=== PATIENT | female | born 1975 | race Caucasian/White ===

== ENCOUNTER 2023-12-24 09:47 | Emergency (ER) | payer BC, SELFPAY ==
[2023-12-24 09:58] VITALS: BP 94/55; PULSE 67; RESP 16; TEMP 37.2; O2SAT 98; BMI 26.4
--- NOTE | 2023-12-24 10:02 | ED_ITS ---
HPI - Skin/Abscess/Foreign Bdy General Time Seen by Provider: 10:02 Date Seen: 12/24/23 Chief complaint: Skin/Abscess/Foreign Body Stated complaint: hives Time Seen by Provider: 12/24/23 09:54 Source: patient and RN notes reviewed Mode of arrival: ambulatory Limitations: no limitations History of Present Illness HPI narrative: This 48-year-old female is ambulatory into the ED of her own accord with concern of hives. These started overnight. She was itchy last evening, woke up in the middle the night with hives, she has them on her chest, some on her forehead, abdomen, axilla. There is some on her arms and legs. She took a Benadryl round 4:00 a.m. and then another 2 tablets of Benadryl round 9:30 a.m. before coming in. She can not really say that she feels a helped the itchiness. She is not aware of any new medications but does note she started Wellbutrin about 3 weeks ago. She has been on other medicines longer. There is no new lotions or detergents. She was outside a lot yesterday, did touch a minute plant. She has not been sick with anything, no fevers no cough cold symptoms. There has been no associated oral pharyngeal symptoms, no difficulty breathing, no abdominal symptoms with this. She does note her mom had problems with hives, her sister started having issues with hives after a 2nd IVF treatment and has been dealing with hives. She is never had hives before. Related Data Home Medications ?Medication ?Instructions ?Recorded ?Confirmed citalopram 40 mg tablet 40 mg PO 06/08/22 06/08/22 trazodone 50 mg tablet 50 mg PO 06/08/22 06/08/22 calcium carbonate 500 mg PO DAILY 06/09/22 06/09/22 conjugated estrogens 0.9 mg tablet 0.9 mg PO DAILY 06/09/22 06/09/22 estradiol 0.05 mg/24 hr semiweekly patch transdermal 06/09/22 06/09/22 transdermal patch medroxyprogesterone 10 mg tablet 10 mg PO DAILY 06/09/22 06/09/22 bupropion HCl 150 mg 24 hr tablet, 150 mg PO DAILY 12/24/23 12/24/23 extended release Previous Rx's ?Medication ?Instructions ?Recorded prednisone 20 mg tablet 20 mg PO BID #10 tabs 12/24/23 Allergies Allergy/AdvReac Type Severity Reaction Status Date / Time No Known Drug Allergies Allergy Verified 06/09/22 08:30 Review of Systems Status of ROS: Reports: 6 or more systems reviewed and unremarkable except as noted in History and below [facility] Medical History (Updated 12/24/23 @ 10:18 by Liliya Colindres MD) Sprain of ankle ?S93.409A - Sprain of unspecified ligament of unspecified ankle, initial encounter (ICD-10) Surgical History (Updated 06/09/22 @ 08:32 by Doreen Courtney ~ [facility], [facility]) History of cataract surgery (2019) ?Z98.49 - Cataract extraction status, unspecified eye (ICD-10) H/O bilateral breast reduction surgery ?Z98.890 - Other specified postprocedural states (ICD-10) Family History Father Diabetes Grandmother Colon cancer Stroke Grandfather Stroke Social History (Updated 06/09/22 @ 08:32 by Doreen Courtney ~ [facility], [facility]) Smoking Status: Never smoker Do you use any of these nicotine containing products: None Second hand tobacco smoke exposure: No Exam Const: Vital Signs, click to edit/add: Vital Signs - 24 hr 12/24/23 09:58 Temperature 98.9 F Pulse Rate [Pulse Oximeter] 67 Respiratory Rate 16 Blood Pressure [Ri ght Upper Arm] 94/55 L Pulse Oximetry 98 Oxygen Delivery Me thod Room Air This is a 48-year-old female is ambulatory into the ED of her own accord. She is in exam room 2. She is alert, interactive, no apparent distress. Speech is normal, able speak in complete sentences. Pupils are equal round reactive, sclera clear. Face shows some erythematous circular areas on her forehead but no oral pharyngeal involvement. There is no oral pharyngeal swelling. Neck is supple, no adenopathy. Lungs are clear, good air entry, no wheezing or crackles. No hives noted on her back. On her anterior chest, axilla, abdomen she has got large plaque like hives. CV regular rate and rhythm, no murmur. Abdomen is soft, nondistended, nontender. She has few smaller dime to quarter size scattered erythematous lesions on her arms and legs consistent with small your urticaria. Documenting provider has reviewed patient's vital signs: yes Course Course ED Course: Patient and I discussed the course of hives. I do have concerns that maybe there was some familial issue here. She is aware that she would need to see Dermatology if the hives are ongoing. At this time there is no evidence of any anaphylaxis or airway, oropharyngeal involvement. She is aware that should this happen she would need to return emergently or call 911. I do not think this patient requires an EpiPen at home for isolated hives. Will have her continue with smith Gonsales, have discussed Zyrtec and treatment with prednisone. She has no hemodynamic compromise. I think she is certainly appropriate for trial of outpatient medicine. We did discuss the difficulty in figuring out what causes hives in the vast majority of people. Vital Signs Vital signs: Initial Vital Signs Temperature 98.9 F 12/24/23 09:58 Temperature Source Oral 12/24/23 09:58 Pulse Rate 67 12/24/23 09:58 Pulse Rhythm Regular 12/24/23 09:58 Respiratory Rate 16 12/24/23 09:58 Blood Pressure 94/55 L 12/24/23 09:58 Blood Pressure Mean 68 L 12/24/23 09:58 Blood Pressure Position Sitting 12/24/23 09:58 Pulse Oximetry 98 12/24/23 09:58 Oxygen Delivery Method Room Air 12/24/23 09:58 Vital Signs Temperature 98.9 F 12/24/23 09:58 Pulse Rate 67 12/24/23 09:58 Respiratory Rate 16 12/24/23 09:58 Blood Pressure 94/55 L 12/24/23 09:58 Pulse Oximetry 98 12/24/23 09:58 Oxygen Delivery Method Room Air 12/24/23 09:58 Temperature 98.9 F 12/24/23 09:58 Pulse Rate 67 12/24/23 09:58 Respiratory Rate 16 12/24/23 09:58 Blood Pressure 94/55 L 12/24/23 09:58 Pulse Oximetry 98 12/24/23 09:58 Oxygen Delivery Method Room Air 12/24/23 09:58 Discharge Plan Discharge Clinical Impression: Hives Patient Disposition: Home, Self-Care Condition: Stable Instructions: Urticaria (ED) Additional Instructions: Start prednisone and take as prescribed, recommend taking with food to protect your stomach. Get to Zyrtec and take 1 10mg tablet twice a day for the next 5- 7 days to help in resolution of the hives. Can continue with topical and or oral Benadryl as needed for symptom control, follow package instructions. If you are not improving with these outline medicines but not worsening, do need to get in to Dermatology. If there is any concern for worsening with development of any oral pharyngeal or airway involvement, need to be seen emergently. Heat and hot showers will bring out hives and itching. Activity Level: Activity as Tolerated Prescriptions: New prednisone 20 mg tablet 20 mg PO BID Qty: 10 0RF No Action citalopram 40 mg tablet 40 mg PO trazodone 50 mg tablet 50 mg PO conjugated estrogens 0.9 mg tablet 0.9 mg PO DAILY calcium carbonate 500 mg calcium (1,250 mg) tablet 500 mg PO DAILY medroxyprogesterone 10 mg tablet 10 mg PO DAILY Rx Instructions: 10 DAYS/MONTH DIRECTED estradiol 0.05 mg/24 hr patch semiweekly transdermal bupropion HCl 150 mg tablet extended release 24 hr 150 mg PO DAILY Follow Up/Referrals: Dustin Laureano MD [Referring] - Stand Alone Forms: [facility] Info Instructions
== END 2023-12-24 10:25 | disposition home or self-care (01) ==
PROVIDERS: Emergency Provider Family Medicine; PCP Family Medicine
DX: L50.9 Urticaria, unspecified (principal)
CPT/HCPCS: 99283

== ENCOUNTER 2025-02-11 11:00 | Outpatient (CLI) | payer BC, SELFPAY | END 2025-02-11 11:01 | disposition home or self-care (01) | LOC: NFLDREF 02-12 14:50 | PROVIDERS: PCP Family Medicine; Referring Provider Family Medicine; Visit Provider Physician Assistant Surgical | DX: N30.01 Acute cystitis with hematuria (principal); B96.20 Unspecified Escherichia coli [E. coli] as the cause of diseases classified elsewhere | CPT/HCPCS: 87086 ==